=== PATIENT | female | born 1970 | race Caucasian/White ===

== ENCOUNTER 2021-03-21 11:15 | Outpatient (CLI) | payer OTHER, SELFPAY ==
[2021-03-21 12:00] LABS: SARS-CoV-2 Ag Negative (Negative)
[2021-03-21 12:22] LABS: SARS-CoV-2 RNA PCR Positive (Negative)
== END 2021-03-21 11:16 | disposition home or self-care (01) ==
LOC: CHSLAB 11:18
PROVIDERS: PCP Family Medicine; Visit Provider Family Medicine
DX: U07.1 COVID-19 (principal)
CPT/HCPCS: 87426; C9803; U0003; U0005

== ENCOUNTER 2022-02-01 12:38 | Outpatient (CLI) | payer OTHER, SELFPAY ==
--- NOTE | ~2022-02-01 | XR_ITS ---
XR hip LT min 2V 02/01/2022 13:42 Indication: Left hip pain Procedure: 2 views left hip Comparison: No prior studies for comparison. Findings: Mild osteoarthritis of the left hip. No fracture, subluxation or dislocation. No significan t soft tissue abnormality. No foreign bodies. Impression: 1: Mild osteoarthritis of the left hip. Reviewed, dictated and finalized at location B. Impression: 1: Mild osteoarthritis of the left hip.
--- NOTE | ~2022-02-01 | XR_ITS ---
EXAMINATION: XR lumbar spine 2-3V DATE: 02/01/2022 13:42 INDICATION: Left-sided lumbar radiculopathy. Left hip pain. TECHNIQUE: 3 views of lumbar spine were obtained. COMPARISON: None. FINDINGS: Bone alignment is normal. Vertebral body heights and intervertebral disc heights are normal . There are endplate osteophytes at most levels. There is multilevel mild facet joint osteoarthritis. There are surgical clips in the pelvis and right abdomen. IMPRESSION: 1. Mild lumbar spondylosis. Reviewed, dictated and finalized at location A. IMPRESSION: 1. Mild lumbar spondylosis.
--- NOTE | ~2022-02-01 | US_ITS ---
EXAMINATION: US thyroid DATE: 02/01/2022 13:15 INDICATION: Multiple thyroid nodules. TECHNIQUE: Multiple ultrasound images of the thyroid were obtained. COMPARISON: Ultrasound 11/06/2018, 12/01/2018 FINDINGS: The right thyroid lobe measures 5.0 x 1.9 x 1.5 cm. The left thyroid lobe measures 5.7 x 3.5 x 3.5 c m. In the right thyroid lobe, there is a 1.9 cm solid, hypoechoic, [id number] nodule with slava h margin without echogenic foci (TI-RADS TR4), stable from 12/01/2018 when biopsy was benign. In the l eft thyroid lobe, there is a 4.8 cm predominantly solid, hypoechoic, [id number]-[id number] nodule with ill- defined margin without echogenic foci (TR4), stable from 12/01/2018 when biopsy was benign. IMPRESSION: 1. Thyroid nodules, stable from 12/01/2018, likely benign. Reviewed, dictated and finalized at location A.
--- NOTE | ~2022-02-01 | MM_ITS ---
EXAMINATION: MM screening brianne BI w dariana HISTORY: Screening mammogram TECHNIQUE: Craniocaudal and mediolateral oblique 3-D tomosynthesis images were obtained and synthetic 2-D images were generated. CAD analysis was submitted and interpreted. COMPARISON: No prior mammogram is available for comparison at this institution. BREAST PARENCHYMAL COMPOSITION: There are scattered areas of fibroglandular density. FINDINGS: There is no suspicious mass, calcification, or architectural distortion to suggest malignan cy in either breast. IMPRESSION: 1. No mammographic evidence of malignancy. 2. Recommend routine screening mammography in one year. BI-RADS Category 1: Negative Reviewed, dictated and finalized at location A.
== END 2022-02-01 12:39 | disposition home or self-care (01) ==
LOC: CHSIMG 12:42
PROVIDERS: PCP Physician Assistant; Visit Provider Physician Assistant
DX: Z12.31 Encounter for screening mammogram for malignant neoplasm of breast (principal); M25.552 Pain in left hip; M54.16 Radiculopathy, lumbar region
CPT/HCPCS: 72100; 73502; 76536; 77063; 77067

== ENCOUNTER 2022-05-23 00:47 | Emergency (ER) | payer OTHER, SELFPAY ==
--- NOTE | 2022-05-23 00:59 | ED.ALLEREA ---
HPI - Allergic Reaction General Chief complaint: Allergic Reaction Stated complaint: ALLERGIC REACTION Time Seen by Provider: 05/23/22 00:59 Source: patient and RN notes reviewed Mode of arrival: ambulatory Limitations: no limitations History of Present Illness HPI narrative: patient had some cashews about 2-1/2 hours ago. About 10 minutes after she ate though she began having that itching sneezing and some difficulty swallowing. She took a Benadryl but then realized that 1 was . So she took 2 more from another bottle. The itching in the sneezing have resolved but she continues to have of a knot in her throat. She was concerned that she would fall asleep and have obstruction of her airway. She was not sure if she should take another Benadryl. She has had the same reaction with a exhibited never had it with cashews. She says that she has got a shot of steroids in the past and that seems to work well for her. MD complaint: allergic reaction Onset (ago): hour(s) (2.5) Exposure: food ( Possibly cashews) Known history of allergy to: eggs Symptoms: itching and difficulty swallowing Severity: moderate Treatment prior to arrival: benadryl Previous Allergic Reaction History: prior ED visit(s) Related Data Home Medications Medication Instructions Recorded Confirmed Lasix See Rx Instructions .Route .COMPLEX 05/23/22 05/23/22 albuterol 1 - 2 puff inhalation DAILY 05/23/22 05/23/22 ergocalciferol (vitamin D2) 1,250 1,250 mcg PO WEEKLY 05/23/22 05/23/22 mcg (50,000 unit) capsule hydrochlorothiazide 25 mg tablet 25 mg PO DAILY 05/23/22 05/23/22 loratadine 10 mg PO DAILY 05/23/22 05/23/22 lorazepam 0.5 mg tablet 0.25 mg PO PRN PRN Agitation 05/23/22 05/23/22 Allergies Allergy/AdvReac Type Severity Reaction Status Date / Time cat dander Allergy Unknown Verified 05/23/22 00:53 cephalexin [From Keflex] Allergy Unknown Verified 05/23/22 00:53 egg Allergy Unknown Verified 05/23/22 00:53 enalapril Allergy Unknown Verified 05/23/22 00:53 erythromycin base Allergy Unknown Verified 05/23/22 00:53 ibuprofen Allergy Unknown Verified 05/23/22 00:53 Iodine and Iodide Containing Allergy Unknown Verified 05/23/22 00:53 Produc ketorolac [From Toradol] Allergy Unknown Verified 05/23/22 00:53 latex Allergy Unknown Verified 05/23/22 00:53 lisinopril Allergy Unknown Verified 05/23/22 00:53 naproxen Allergy Unknown Verified 05/23/22 00:53 Penicillins Allergy Unknown Verified 05/23/22 00:53 tetracycline Allergy Unknown Verified 05/23/22 00:53 Review of Systems Review of Systems: All systems reviewed & are unremarkable except as noted in HPI and below PMFSH Past Medical History Medical History (Updated 05/23/22 @ 01:15 by Doug Pinto MD) Anxiety Asthma Hypertension Morbid obesity Surgical History Surgical History (Updated 05/23/22 @ 01:12 by Doug Pinto MD) Ectopic History of section History of total abdominal hysterectomy Hx of cholecystectomy Social History Social History (Updated 05/23/22 @ 01:12 by Doug Pinto MD) Smoking status: Never smoker Alcohol intake: never Substance use: never Exam Const: General: healthy appearing, no acute distress and alert Nutritional Appearance: well nourished and obese morbidly obese Orientation/consciousness: patient oriented x3 Limitations: no limitations HENMT: Head: normal to inspection Ears: external ears normal General nose exam: Normal external nose present Face and sinus: normal facial exam Mouth: Yes moist mucous membranes Eyes: Conjunctivae: conjunctivae normal Pupils: Equal, round and reactive pupils present EOM: EOMs intact bilaterally Neck: Neck: normal visual inspection Resp: Effort & Inspection: normal respiratory effort Auscultation: clear to auscultation bilaterally Cardio: Rate: regular rate Rhythm: regular rhythm GI: GI Palp: Yes Soft to palpation and No Tenderness to palpation present (GI) Au
[2022-05-23 01:10] VITALS: BP 142/72; PULSE 106; RESP 22; TEMP 36.4; O2SAT 96
[2022-05-23] MEDS: methylPREDNISolone SOD SUCC 125 MG VIAL IM (01:21)
== END 2022-05-23 01:29 | disposition home or self-care (01) ==
PROVIDERS: Emergency Provider Emergency Medicine; PCP Physician Assistant
DX: T78.40XA Allergy, unspecified, initial encounter (principal)
CPT/HCPCS: 96372; 99283; J2930